=== PATIENT | female | born 1935 | race Caucasian/White ===

== ENCOUNTER 2016-12-30 16:16 | Emergency (ER) | payer MEDICARE ==
[~2016-12-30] VITALS: Ht 167.6 cm; Wt 77.3 kg
[~2016-12-30 16:16] MED LIST: ALPH200T2 PO; ASPI-496 PO; ATEN100T PO; CLOP75TA22 PO; DIAZ2TAB3 PO; EZET1TAB5 PO; LEVO112T4 PO; LEVO250C PO; LOSA25TA5 PO; MECL-76 PO; METF500T3 PO; METH500T97 PO; MONT10TA6 PO; POTA20TA6 PO; RANI150T4 PO; RANO500T2 PO; SOLI10TA PO; TRIA1CAP3 PO; UBID400C6 PO
[2016-12-30 17:12] VITALS: BP 133/53
== END 2016-12-30 18:54 | disposition home or self-care (01) ==
LOC: ED 18:16
DX: S33.5XXA Sprain of ligaments of lumbar spine, initial encounter (principal); S70.01XA Contusion of right hip, initial encounter; I10 Essential (primary) hypertension; E11.9 Type 2 diabetes mellitus without complications; J45.909 Unspecified asthma, uncomplicated; I25.2 Old myocardial infarction; W18.30XA Fall on same level, unspecified, initial encounter; Y93.89 Activity, other specified; Y99.8 Other external cause status; Y92.003 Bedroom of unspecified non-institutional (private) residence as the place of occurrence of the external cause
CPT/HCPCS: 72110; 72170; 93005

== ENCOUNTER 2018-03-14 13:47 | Emergency (ER) | payer MEDICARE ==
[~2018-03-14] VITALS: Ht 167.6 cm; Wt 72.0 kg
[~2018-03-14 13:47] MED LIST changes: -CLOP75TA22 PO; +CLOP75TA52 PO; +EZET1TAB35 PO; -EZET1TAB5 PO; -SOLI10TA PO; +SOLI10TA2 PO
[2018-03-14] MEDS ORDERED: OXYcodone/APAP 5/325MG TABLET ONE (14:13)
[2018-03-14] MEDS ORDERED: OXYcodone/APAP 5/325MG TABLET PO ONE (14:30)
[2018-03-14] MEDS ORDERED: BACITRACIN ZINC OINT 500U/GM, 0.9 GM ONE (14:58)
[2018-03-14 16:59] VITALS: BP 122/62
== END 2018-03-14 17:01 | disposition home or self-care (01) ==
LOC: ED 14:29
DX: S42.031A Displaced fracture of lateral end of right clavicle, initial encounter for closed fracture (principal); I10 Essential (primary) hypertension; I25.10 Atherosclerotic heart disease of native coronary artery without angina pectoris; I25.2 Old myocardial infarction; E11.9 Type 2 diabetes mellitus without complications; Z87.891 Personal history of nicotine dependence; V98.8XXA Other specified transport accidents, initial encounter; Y93.55 Activity, bike riding; Y92.89 Other specified places as the place of occurrence of the external cause; Y99.8 Other external cause status
CPT/HCPCS: 99284

== ENCOUNTER 2018-03-19 10:08 | Inpatient (IN) | payer MEDICARE ==
[~2018-03-19] VITALS: Ht 167.6 cm; Wt 73.8 kg
[2018-03-19 11:14] LABS: INTERNATIONAL NORMALIZED RATIO 1.05 (0.93-1.1); PROTHROMBIN TIME 10.8 Seconds (9.6-11.5)
[2018-03-19 11:20] LABS: ALANINE AMINOTRANSFERASE 16 U/L (12-78); ALBUMIN 3.5 g/dL (3.4-5.0); ANION GAP 8 mmol/L (5-15); CALCIUM 8.7 mg/dL (8.5-10.1); CHLORIDE 105 mmol/L (98-107)
[2018-03-19 11:21] LABS: TROPONIN I < 0.015 ng/mL (0.000-0.045)
[2018-03-19 11:23] LABS: ALKALINE PHOSPHATASE 72 U/L (45-117); BILIRUBIN,TOTAL 0.6 mg/dL (0.2-1.0); CREATINE KINASE, TOTAL 85 U/L (26-192); CREATININE 1.47 mg/dL (0.55-1.02); TOTAL PROTEIN 6.4 g/dL (6.4-8.2)
[2018-03-19 11:25] LABS: BASOPHILS # (AUTO) 0.02 x10^3/uL (0-0.1); BASOPHILS % (AUTO) 0 % (0-1); EOSINOPHILS # (AUTO) 0.03 x10^3/uL (0-0.4); EOSINOPHILS % (AUTO) 0 % (1-7); LYMPHOCYTES # (AUTO) 0.95 x10^3/uL (1-3.4); LYMPHOCYTES % (AUTO) 16 % (22-44); MD NO; MEAN CORPUSCULAR HGB CONC 33.3 g/dL (32.4-35.8); MEAN CORPUSCULAR VOLUME 96.1 fL (80-100); MEAN PLATELET VOLUME 7.7 fL (7.4-10.4); MONOCYTES # (AUTO) 0.26 x10^3/uL (0.2-0.8); MONOCYTES % (AUTO) 4 % (2-9); NEUTROPHILS # (AUTO) 4.87 x10^3/uL (1.8-6.8); NEUTROPHILS % (AUTO) 80 % (42-75); PLATELET COUNT 227 x10^3/uL (130-400); RED BLOOD COUNT 4.05 x10^6/uL (3.82-5.3)
[2018-03-19 12:22] LABS: MICROSCOPIC INDICATED
[2018-03-19 12:23] LABS: CULTURE INDICATED? YES
[2018-03-19] MEDS ORDERED: SODIUM CHLORIDE 0.9% 1,000 ML IV ONE (13:30)
[2018-03-19 14:27] VITALS: BP 161/66
[2018-03-19] MEDS ORDERED: ONDANSETRON 2MG/ML, 2ML IVPush PRN (15:00)
[2018-03-19] MEDS ORDERED: LABETALOL 5MG/ML, 20ML IVPush PRN (15:00)
[2018-03-19] MEDS ORDERED: ACETAMINOPHEN 325 MG TABLET PO PRN (15:00)
[2018-03-19 16:04] LABS: HEMOGLOBIN A1C 5.1 % (4.2-6.3)
[2018-03-19 16:11] VITALS: BP 161/66
[2018-03-19] MEDS: POTASSIUM CHLORIDE 20 MEQ in LACTATED RINGERS 1,000 ML IV SCH (16:43)
[2018-03-19] MEDS: HEPARIN 5,000 UNITS/ML, 1ML SQ SCH (16:45)
[2018-03-19 20:37] VITALS: BP 147/66
[2018-03-19] MEDS: RANOLAZINE 500 MG TAB.ER.12H PO SCH (21:19)
[2018-03-19] MEDS: SIMVASTATIN 40 MG TABLET PO SCH (21:20)
[2018-03-19] MEDS: OXYBUTYNIN CHLORIDE 5 MG TABLET PO SCH (21:21)
[2018-03-20 00:24] VITALS: BP 155/73
[2018-03-20] MEDS: POTASSIUM CHLORIDE 20 MEQ in LACTATED RINGERS 1,000 ML IV SCH ×2 (04:42→16:46)
[2018-03-20 05:01] LABS: BASOPHILS # (AUTO) 0.06 x10^3/uL (0-0.1); BASOPHILS % (AUTO) 1 % (0-1); EOSINOPHILS # (AUTO) 0.09 x10^3/uL (0-0.4); EOSINOPHILS % (AUTO) 2 % (1-7); LYMPHOCYTES # (AUTO) 1.74 x10^3/uL (1-3.4); LYMPHOCYTES % (AUTO) 34 % (22-44); MD NO; MEAN CORPUSCULAR HEMOGLOBIN 31.9 pg (27.0-34.8); MEAN CORPUSCULAR HGB CONC 33.4 g/dL (32.4-35.8); MEAN CORPUSCULAR VOLUME 95.4 fL (80-100); MEAN PLATELET VOLUME 7.6 fL (7.4-10.4); MONOCYTES # (AUTO) 0.42 x10^3/uL (0.2-0.8); MONOCYTES % (AUTO) 8 % (2-9); NEUTROPHILS # (AUTO) 2.85 x10^3/uL (1.8-6.8); NEUTROPHILS % (AUTO) 55 % (42-75); PLATELET COUNT 233 x10^3/uL (130-400); RED BLOOD COUNT 3.99 x10^6/uL (3.82-5.3); RED CELL DISTRIBUTION WIDTH 13.9 % (9.6-15.2)
[2018-03-20 05:12] LABS: ANION GAP 7 mmol/L (5-15); CALCIUM 8.8 mg/dL (8.5-10.1); CHLORIDE 108 mmol/L (98-107)
[2018-03-20 05:13] LABS: CREATININE 1.08 mg/dL (0.55-1.02)
[2018-03-20] MEDS: LEVOTHYROXINE 112 MCG TABLET PO SCH (05:15)
[2018-03-20] MEDS: OXYBUTYNIN CHLORIDE 5 MG TABLET PO SCH ×3 (05:15→21:55)
[2018-03-20] MEDS: HEPARIN 5,000 UNITS/ML, 1ML SQ SCH ×3 (05:15→21:55)
[2018-03-20 07:05] VITALS: BP 156/69
[2018-03-20] MEDS: EZETIMIBE 10 MG TABLET PO SCH (08:51)
[2018-03-20] MEDS: POTASSIUM CHLORIDE 20 MEQ TAB.ER.PRT PO SCH (08:51)
[2018-03-20] MEDS: RANOLAZINE 500 MG TAB.ER.12H PO SCH ×2 (08:51→21:55)
[2018-03-20] MEDS: ASPIRIN 81 MG TABLET EC PO SCH (08:52)
[2018-03-20] MEDS: LOSARTAN 25MG TABLET PO SCH (08:53)
[2018-03-20] MEDS: LEVOCARNITINE 100 MG/ML PO SCH (09:00)
[2018-03-20] MEDS ORDERED: TEMPLATE NON-FORMULARY MED. (Alpha Lipoic Acid** 200 MG) PO SCH (09:00)
[2018-03-20] MEDS ORDERED: UBIDECARENONE 400 MG PO SCH (09:00)
[2018-03-20 12:36] VITALS: BP 146/71
[2018-03-20 19:05] VITALS: BP 152/69
[2018-03-20] MEDS: SIMVASTATIN 40 MG TABLET PO SCH (21:55)
[2018-03-21 01:30] VITALS: BP 168/71
[2018-03-21] MEDS: POTASSIUM CHLORIDE 20 MEQ in LACTATED RINGERS 1,000 ML IV SCH ×2 (02:28→20:42)
[2018-03-21] MEDS: OXYBUTYNIN CHLORIDE 5 MG TABLET PO SCH ×3 (06:24→20:45)
[2018-03-21] MEDS: LEVOTHYROXINE 112 MCG TABLET PO SCH (06:24)
[2018-03-21] MEDS: HEPARIN 5,000 UNITS/ML, 1ML SQ SCH ×3 (06:25→22:00)
[2018-03-21 07:34] VITALS: BP 146/78
[2018-03-21] MEDS: RANOLAZINE 500 MG TAB.ER.12H PO SCH ×2 (07:52→20:41)
[2018-03-21] MEDS: EZETIMIBE 10 MG TABLET PO SCH (07:53)
[2018-03-21] MEDS: ASPIRIN 81 MG TABLET EC PO SCH (07:53)
[2018-03-21] MEDS: LOSARTAN 25MG TABLET PO SCH (07:54)
[2018-03-21] MEDS: LEVOCARNITINE 100 MG/ML PO SCH (07:54)
[2018-03-21] MEDS: POTASSIUM CHLORIDE 20 MEQ TAB.ER.PRT PO SCH (09:00)
[2018-03-21 13:08] VITALS: BP 110/74
[2018-03-21 19:11] VITALS: BP 163/74
[2018-03-21] MEDS: SIMVASTATIN 40 MG TABLET PO SCH (20:42)
[2018-03-22 00:20] VITALS: BP 166/67
[2018-03-22] MEDS: HEPARIN 5,000 UNITS/ML, 1ML SQ SCH (05:39)
[2018-03-22] MEDS: OXYBUTYNIN CHLORIDE 5 MG TABLET PO SCH (05:39)
[2018-03-22] MEDS: LEVOTHYROXINE 112 MCG TABLET PO SCH (05:46)
[2018-03-22 07:09] VITALS: BP 164/78
[2018-03-22] MEDS: RANOLAZINE 500 MG TAB.ER.12H PO SCH (08:28)
[2018-03-22] MEDS: POTASSIUM CHLORIDE 20 MEQ TAB.ER.PRT PO SCH (08:28)
[2018-03-22] MEDS: EZETIMIBE 10 MG TABLET PO SCH (08:29)
[2018-03-22] MEDS: LOSARTAN 25MG TABLET PO SCH (08:29)
[2018-03-22] MEDS: ASPIRIN 81 MG TABLET EC PO SCH (08:29)
[2018-03-22] MEDS: LEVOCARNITINE 100 MG/ML PO SCH (08:30)
[2018-03-22] MEDS: POTASSIUM CHLORIDE 20 MEQ in LACTATED RINGERS 1,000 ML IV SCH (08:46)
== END 2018-03-22 12:52 | DRG 542 ==
LOC: ED 11:37 → EDIP 13:23 → 3NE 14:09
PROVIDERS: ADMIT Internal Medicine; ATTEND Internal Medicine
PROC: 0T9B70Z Drainage of Bladder with Drainage Device, Via Natural or Artificial Opening (ICD-10-PCS; principal; 2018-03-19)
DX: M80.011A Age-related osteoporosis with current pathological fracture, right shoulder, initial encounter for fracture (principal); N17.0 Acute kidney failure with tubular necrosis; I25.10 Atherosclerotic heart disease of native coronary artery without angina pectoris; M19.90 Unspecified osteoarthritis, unspecified site; E03.9 Hypothyroidism, unspecified; E11.9 Type 2 diabetes mellitus without complications; I11.9 Hypertensive heart disease without heart failure; Z88.3 Allergy status to other anti-infective agents; W18.30XA Fall on same level, unspecified, initial encounter; Y93.89 Activity, other specified; Y92.89 Other specified places as the place of occurrence of the external cause; Y99.8 Other external cause status; Z95.5 Presence of coronary angioplasty implant and graft; Z87.891 Personal history of nicotine dependence; Z82.49 Family history of ischemic heart disease and other diseases of the circulatory system
CPT/HCPCS: 36415; 51701; 71045; 80048; 80053; 81001; 82550; 83036; 83605; 83735; 84100; 84443; 84484; 85025; 85610; 87086; 93005; 99285; J1644; J3480; J7030; J7120; P9612

== ENCOUNTER 2018-04-20 04:40 | Emergency (ER) | payer MEDICARE ==
[~2018-04-20] VITALS: Ht 167.6 cm; Wt 71.4 kg
[~2018-04-20 04:40] MED LIST changes: -LOSA25TA5 PO; +LOSA25TA6 PO
[2018-04-20 05:35] LABS: BASOPHILS # (AUTO) 0.03 x10^3/uL (0-0.1); BASOPHILS % (AUTO) 0 % (0-1); EOSINOPHILS # (AUTO) 0.03 x10^3/uL (0-0.4); EOSINOPHILS % (AUTO) 0 % (1-7); LYMPHOCYTES # (AUTO) 0.91 x10^3/uL (1-3.4); LYMPHOCYTES % (AUTO) 12 % (22-44); MD NO; MEAN CORPUSCULAR HEMOGLOBIN 32.4 pg (27.0-34.8); MEAN CORPUSCULAR HGB CONC 33.8 g/dL (32.4-35.8); MEAN CORPUSCULAR VOLUME 95.8 fL (80-100); MEAN PLATELET VOLUME 7.2 fL (7.4-10.4); MONOCYTES # (AUTO) 0.34 x10^3/uL (0.2-0.8); MONOCYTES % (AUTO) 5 % (2-9); NEUTROPHILS # (AUTO) 6.33 x10^3/uL (1.8-6.8); NEUTROPHILS % (AUTO) 83 % (42-75); PLATELET COUNT 254 x10^3/uL (130-400); RED BLOOD COUNT 3.87 x10^6/uL (3.82-5.3); RED CELL DISTRIBUTION WIDTH 13.5 % (9.6-15.2)
[2018-04-20 05:48] LABS: ALBUMIN 3.2 g/dL (3.4-5.0); ANION GAP 8 mmol/L (5-15); CALCIUM 8.8 mg/dL (8.5-10.1); CHLORIDE 107 mmol/L (98-107); CREATININE 0.98 mg/dL (0.55-1.02)
[2018-04-20 05:51] LABS: CREATINE KINASE, TOTAL 41 U/L (26-192)
[2018-04-20] MEDS ORDERED: ACETAMINOPHEN 500 MG TABLET ONE (05:53)
[2018-04-20] MEDS ORDERED: ACETAMINOPHEN 325 MG TABLET PO ONE (06:00)
[2018-04-20 07:15] VITALS: BP 136/53
== END 2018-04-20 07:18 | disposition home or self-care (01) ==
LOC: ED 05:01
DX: S42.031A Displaced fracture of lateral end of right clavicle, initial encounter for closed fracture (principal); W01.0XXA Fall on same level from slipping, tripping and stumbling without subsequent striking against object, initial encounter; Y93.89 Activity, other specified; Y92.098 Other place in other non-institutional residence as the place of occurrence of the external cause; Y99.8 Other external cause status
CPT/HCPCS: 36415; 70450; 80048; 82040; 82550; 85025; 93005; 99285

== ENCOUNTER 2018-05-29 16:43 | Observation (INO) | payer MEDICARE ==
[~2018-05-29] VITALS: Ht 167.6 cm; Wt 72.2 kg
[2018-05-29] MEDS ORDERED: MORPHINE SULFATE 4 MG/ML, 1ML IVPush ONE (17:00)
[2018-05-29] MEDS ORDERED: MORPHINE SULFATE 4 MG/ML, 1ML ONE (18:08)
[2018-05-29] MEDS ORDERED: SODIUM CHLORIDE FLUSH 10ML SYR IVF ONE (19:30)
[2018-05-29 20:07] LABS: BASOPHILS # (AUTO) 0.03 x10^3/uL (0-0.1); BASOPHILS % (AUTO) 1 % (0-1); EOSINOPHILS # (AUTO) 0.12 x10^3/uL (0-0.4); EOSINOPHILS % (AUTO) 2 % (1-7); LYMPHOCYTES # (AUTO) 1.46 x10^3/uL (1-3.4); LYMPHOCYTES % (AUTO) 21 % (22-44); MD NO; MEAN CORPUSCULAR HEMOGLOBIN 32.3 pg (27.0-34.8); MEAN CORPUSCULAR HGB CONC 33.6 g/dL (32.4-35.8); MEAN PLATELET VOLUME 7.5 fL (7.4-10.4); MONOCYTES # (AUTO) 0.41 x10^3/uL (0.2-0.8); MONOCYTES % (AUTO) 6 % (2-9); NEUTROPHILS # (AUTO) 4.83 x10^3/uL (1.8-6.8); NEUTROPHILS % (AUTO) 70 % (42-75); PLATELET COUNT 203 x10^3/uL (130-400); RED BLOOD COUNT 3.16 x10^6/uL (3.82-5.3); RED CELL DISTRIBUTION WIDTH 14.4 % (9.6-15.2)
[2018-05-29 20:15] LABS: INTERNATIONAL NORMALIZED RATIO 1.08 (0.93-1.1); PROTHROMBIN TIME 11.1 Seconds (9.6-11.5)
[2018-05-29 20:16] LABS: ALANINE AMINOTRANSFERASE 18 U/L (12-78); ALBUMIN 2.8 g/dL (3.4-5.0); ANION GAP 10 mmol/L (5-15); CHLORIDE 107 mmol/L (98-107)
[2018-05-29 20:19] LABS: ALKALINE PHOSPHATASE 64 U/L (45-117); BILIRUBIN,TOTAL 0.4 mg/dL (0.2-1.0); TOTAL PROTEIN 5.1 g/dL (6.4-8.2)
[2018-05-29] MEDS ORDERED: SODIUM CHLORIDE FLUSH 10ML SYR IVF PRN (20:30)
[2018-05-29] MEDS ORDERED: ONDANSETRON 2MG/ML, 2ML IVPush PRN (21:00)
[2018-05-29] MEDS ORDERED: ACETAMINOPHEN 325 MG TABLET PO PRN (21:00)
[2018-05-29] MEDS ORDERED: POLYETHYLENE GLYCOL 17 GM PACKET PO PRN (21:00)
[2018-05-29] MEDS ORDERED: DEXTROSE 50%, 50ML SYRINGE IVPush PRN (21:30)
[2018-05-29] MEDS ORDERED: DEXTROSE 4 GM TAB.CHEW PO PRN (21:30)
[2018-05-29] MEDS ORDERED: GLUCAGON 1 MG IM PRN (21:30)
[2018-05-29] MEDS: SODIUM CHLORIDE 0.9% 1,000 ML IV SCH (21:33)
[2018-05-29 21:42] VITALS: BP 104/51
[2018-05-30] MEDS: OXYBUTYNIN CHLORIDE 5 MG TABLET PO SCH ×3 (00:17→16:00)
[2018-05-30 00:20] LABS: MICROSCOPIC AUTO
[2018-05-30 00:28] LABS: CULTURE INDICATED? YES
[2018-05-30 02:14] VITALS: BP 102/54
[2018-05-30] MEDS ORDERED: ASPIRIN 81 MG TABLET EC PO SCH (06:00)
[2018-05-30] MEDS ORDERED: LEVOTHYROXINE 112 MCG TABLET PO SCH (06:00)
[2018-05-30] MEDS ORDERED: CEFTRIAXONE PMX 1GM/50ML 50 ML IV SCH (07:30)
[2018-05-30 07:59] VITALS: BP 100/58
[2018-05-30 08:09] LABS: ANION GAP 8 mmol/L (5-15); BASOPHILS # (AUTO) 0.03 x10^3/uL (0-0.1); BASOPHILS % (AUTO) 1 % (0-1); CALCIUM 8.2 mg/dL (8.5-10.1); CHLORIDE 105 mmol/L (98-107); CREATININE 0.87 mg/dL (0.55-1.02); EOSINOPHILS # (AUTO) 0.05 x10^3/uL (0-0.4); EOSINOPHILS % (AUTO) 1 % (1-7); LYMPHOCYTES # (AUTO) 1.71 x10^3/uL (1-3.4); LYMPHOCYTES % (AUTO) 27 % (22-44); MD NO; MEAN CORPUSCULAR HEMOGLOBIN 31.7 pg (27.0-34.8); MEAN CORPUSCULAR HGB CONC 32.7 g/dL (32.4-35.8); MEAN CORPUSCULAR VOLUME 96.8 fL (80-100); MEAN PLATELET VOLUME 7.3 fL (7.4-10.4); MONOCYTES % (AUTO) 8 % (2-9); NEUTROPHILS # (AUTO) 3.95 x10^3/uL (1.8-6.8); NEUTROPHILS % (AUTO) 63 % (42-75); PLATELET COUNT 212 x10^3/uL (130-400); RED BLOOD COUNT 2.83 x10^6/uL (3.82-5.3); RED CELL DISTRIBUTION WIDTH 14.1 % (9.6-15.2)
[2018-05-30] MEDS ORDERED: EZETIMIBE 10 MG TABLET PO SCH (09:00)
[2018-05-30] MEDS ORDERED: UBIDECARENONE 400 MG PO SCH (09:00)
[2018-05-30] MEDS ORDERED: SODIUM CHLORIDE FLUSH 10ML SYR IVF SCH (09:00)
[2018-05-30] MEDS ORDERED: POTASSIUM CHLORIDE 20 MEQ TAB.ER.PRT PO SCH (09:00)
[2018-05-30] MEDS ORDERED: SIMVASTATIN 40 MG TABLET PO SCH (09:00)
[2018-05-30] MEDS ORDERED: LOSARTAN 25MG TABLET PO SCH (09:00)
[2018-05-30] MEDS ORDERED: CALCIUM CITRATE 950 MG TABLET PO SCH (09:30)
[2018-05-30] MEDS ORDERED: MAGNESIUM SULFATE PMX 2GM/50ML 50 ML IV ONE (09:30)
[2018-05-30 13:30] VITALS: BP 95/53
[2018-05-30] MEDS: SODIUM CHLORIDE 0.9% 1,000 ML IV SCH (13:34)
[2018-05-30] MEDS ORDERED: CEFD300C37 PO (13:58)
== END 2018-05-30 17:53 | disposition home or self-care (01) ==
LOC: ED 16:49 → EDIP 20:25 → INTOOBSV 20:25 → 3NW 21:21
PROVIDERS: ADMIT Hospitalist; ATTEND Hospitalist
DX: S70.02XA Contusion of left hip, initial encounter (principal); R79.89 Other specified abnormal findings of blood chemistry; E43 Unspecified severe protein-calorie malnutrition; I10 Essential (primary) hypertension; D64.9 Anemia, unspecified; E11.9 Type 2 diabetes mellitus without complications; E03.9 Hypothyroidism, unspecified; E78.5 Hyperlipidemia, unspecified; E83.51 Hypocalcemia; E83.42 Hypomagnesemia; I25.10 Atherosclerotic heart disease of native coronary artery without angina pectoris; M16.12 Unilateral primary osteoarthritis, left hip; M19.019 Primary osteoarthritis, unspecified shoulder; N39.0 Urinary tract infection, site not specified; R29.6 Repeated falls; Z90.710 Acquired absence of both cervix and uterus; Z96.651 Presence of right artificial knee joint; W18.09XA Striking against other object with subsequent fall, initial encounter; Y93.89 Activity, other specified; Z91.81 History of falling; Y92.512 Supermarket, store or market as the place of occurrence of the external cause
CPT/HCPCS: 36415; 73030; 73502; 73700; 80048; 80053; 81001; 82962; 83735; 84100; 85025; 85610; 85730; 87086; 93005; 96365; 96366; 96367; 96375; 97163; 97165; 99285; G0378; J0696; J3475; J7030; 96374

== ENCOUNTER 2018-06-14 10:36 | Emergency (ER) | payer MEDICARE ==
[~2018-06-14] VITALS: Ht 167.6 cm; Wt 72.7 kg
[~2018-06-14 10:36] MED LIST changes: +CEFD300C37 PO
[2018-06-14 11:17] LABS: BASOPHILS # (AUTO) 0.01 x10^3/uL (0-0.1); BASOPHILS % (AUTO) 0 % (0-1); EOSINOPHILS # (AUTO) 0.03 x10^3/uL (0-0.4); EOSINOPHILS % (AUTO) 1 % (1-7); LYMPHOCYTES # (AUTO) 0.69 x10^3/uL (1-3.4); LYMPHOCYTES % (AUTO) 13 % (22-44); MD NO; MEAN CORPUSCULAR HEMOGLOBIN 33.1 pg (27.0-34.8); MEAN CORPUSCULAR HGB CONC 33.4 g/dL (32.4-35.8); MEAN CORPUSCULAR VOLUME 99.1 fL (80-100); MEAN PLATELET VOLUME 6.6 fL (7.4-10.4); MONOCYTES # (AUTO) 0.21 x10^3/uL (0.2-0.8); MONOCYTES % (AUTO) 4 % (2-9); NEUTROPHILS # (AUTO) 4.46 x10^3/uL (1.8-6.8); NEUTROPHILS % (AUTO) 83 % (42-75); PLATELET COUNT 389 x10^3/uL (130-400); RED BLOOD COUNT 3.35 x10^6/uL (3.82-5.3)
[2018-06-14 11:27] LABS: ALBUMIN 3.7 g/dL (3.4-5.0); ANION GAP 7 mmol/L (5-15); CALCIUM 8.7 mg/dL (8.5-10.1); CHLORIDE 106 mmol/L (98-107); CREATININE 0.87 mg/dL (0.55-1.02)
[2018-06-14 12:12] VITALS: BP 153/67
== END 2018-06-14 12:33 | disposition home or self-care (01) ==
LOC: ED 10:48
DX: R42 Dizziness and giddiness (principal); I10 Essential (primary) hypertension; E11.9 Type 2 diabetes mellitus without complications; I25.10 Atherosclerotic heart disease of native coronary artery without angina pectoris; W06.XXXA Fall from bed, initial encounter; Y93.89 Activity, other specified; Y92.89 Other specified places as the place of occurrence of the external cause; Y99.8 Other external cause status; F03.90 Unspecified dementia, unspecified severity, without behavioral disturbance, psychotic disturbance, mood disturbance, and anxiety
CPT/HCPCS: 36415; 80048; 82040; 85025; 93005; 99285

== ENCOUNTER 2018-12-12 13:08 | Emergency (ER) | payer MEDICARE ==
[~2018-12-12] VITALS: Ht 167.6 cm; Wt 67.0 kg
[~2018-12-12 13:08] MED LIST changes: +LOSA25TA25 PO; -LOSA25TA6 PO
--- NOTE | 2018-12-12 13:41 | NUR ---
PT TO CT VIA [facility].
[2018-12-12] MEDS ORDERED: CLOP75TA52 PO (13:49)
--- NOTE | 2018-12-12 13:51 | NUR ---
REPORT TO RAYMON HIRSCH
--- NOTE | 2018-12-12 15:20 | NUR ---
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
[2018-12-12 15:58] VITALS: BP 143/78
== END 2018-12-12 16:00 | disposition home or self-care (01) ==
LOC: ED 14:30
DX: S70.01XA Contusion of right hip, initial encounter (principal); S00.03XA Contusion of scalp, initial encounter; S60.512A Abrasion of left hand, initial encounter; S60.511A Abrasion of right hand, initial encounter; W18.30XA Fall on same level, unspecified, initial encounter; Y93.89 Activity, other specified; Y92.009 Unspecified place in unspecified non-institutional (private) residence as the place of occurrence of the external cause; Y99.8 Other external cause status
CPT/HCPCS: 70450; 99284

== ENCOUNTER 2019-09-09 12:57 | Inpatient (IN) | payer MEDICARE ==
[~2019-09-09] VITALS: Ht 167.6 cm; Wt 75.1 kg
--- NOTE | 2019-09-09 13:12 | NUR ---
Break RN: MD Munoz at bedside to assess pt
[2019-09-09] MEDS ORDERED: SODIUM CHLORIDE FLUSH 10ML SYR IVF ONE (13:30)
[2019-09-09 13:46] LABS: BASOPHILS # (AUTO) 0.03 x10^3/uL (0-0.1); BASOPHILS % (AUTO) 1 % (0-1); EOSINOPHILS # (AUTO) 0.12 x10^3/uL (0-0.4); EOSINOPHILS % (AUTO) 3 % (1-7); LYMPHOCYTES % (AUTO) 22 % (22-44); MD NO; MEAN CORPUSCULAR HEMOGLOBIN 30.1 pg (27.0-34.8); MEAN CORPUSCULAR HGB CONC 32.9 g/dL (32.4-35.8); MEAN CORPUSCULAR VOLUME 91.4 fL (80-100); MEAN PLATELET VOLUME 7.3 fL (7.4-10.4); MONOCYTES # (AUTO) 0.36 x10^3/uL (0.2-0.8); MONOCYTES % (AUTO) 8 % (2-9); NEUTROPHILS # (AUTO) 3.14 x10^3/uL (1.8-6.8); NEUTROPHILS % (AUTO) 68 % (42-75); PLATELET COUNT 240 x10^3/uL (130-400); RED BLOOD COUNT 3.85 x10^6/uL (3.82-5.3); RED CELL DISTRIBUTION WIDTH 14.2 % (9.6-15.2)
[2019-09-09 13:56] LABS: ALBUMIN 3.2 g/dL (3.4-5.0); ANION GAP 6 mmol/L (5-15); CALCIUM 9.1 mg/dL (8.5-10.1); CHLORIDE 106 mmol/L (98-107); CREATININE 0.98 mg/dL (0.55-1.02)
[2019-09-09 14:00] LABS: TROPONIN I < 0.015 ng/mL (0.000-0.045)
--- NOTE | 2019-09-09 15:58 | NUR ---
MULTI USE OF BS COMMODE W CONTACT ASSIST
--- NOTE | 2019-09-09 16:39 | NUR ---
CALLED REPORT TO THE FLOOR
[2019-09-09] MEDS ORDERED: ACETAMINOPHEN 325 MG TABLET PO PRN (18:00)
[2019-09-09] MEDS ORDERED: hydrALAzine 20 MG/ML, 1ML IVPush PRN (18:00)
[2019-09-09] MEDS ORDERED: ONDANSETRON 2MG/ML, 2ML IVPush PRN (18:00)
[2019-09-09] MEDS ORDERED: MORPHINE SULFATE 4 MG/ML, 1ML IVPush PRN (18:00)
[2019-09-09] MEDS ORDERED: TEMAZEPAM 15 MG CAPSULE PO PRN (18:00)
[2019-09-09] MEDS: INSULIN LISPRO 100 UNITS/ML, PEN SQ-INSULIN SCH ×2 (18:08→21:00)
[2019-09-09 18:44] LABS: MICROSCOPIC NOT IND
[2019-09-09 18:53] LABS: CULTURE INDICATED? NO
[2019-09-09 19:07] LABS: TROPONIN I < 0.015 ng/mL (0.000-0.045)
[2019-09-09] MEDS: ENOXAPARIN 40 MG/0.4 ML SQ SCH (20:58)
[2019-09-09] MEDS: ATORVASTATIN 20 MG TABLET PO SCH (20:58)
[2019-09-09 20:59] VITALS: BP_SYST 182; BP_SYST 185; BP_DIAS 60; BP_DIAS 64
[2019-09-09] MEDS: LISINOPRIL 20 MG TABLET PO SCH (20:59)
[2019-09-10] VITALS (9 sets, daily range): BP systolic 113–155; BP diastolic 55–73
[2019-09-10 03:14] LABS: TROPONIN I < 0.015 ng/mL (0.000-0.045)
[2019-09-10 05:47] LABS: BASOPHILS # (AUTO) 0.03 x10^3/uL (0-0.1); BASOPHILS % (AUTO) 1 % (0-1); EOSINOPHILS # (AUTO) 0.13 x10^3/uL (0-0.4); EOSINOPHILS % (AUTO) 3 % (1-7); LYMPHOCYTES # (AUTO) 1.58 x10^3/uL (1-3.4); LYMPHOCYTES % (AUTO) 37 % (22-44); MD NO; MEAN CORPUSCULAR HEMOGLOBIN 30.2 pg (27.0-34.8); MEAN CORPUSCULAR HGB CONC 33.5 g/dL (32.4-35.8); MEAN CORPUSCULAR VOLUME 90.3 fL (80-100); MEAN PLATELET VOLUME 7.7 fL (7.4-10.4); MONOCYTES # (AUTO) 0.49 x10^3/uL (0.2-0.8); MONOCYTES % (AUTO) 12 % (2-9); NEUTROPHILS # (AUTO) 2.01 x10^3/uL (1.8-6.8); NEUTROPHILS % (AUTO) 47 % (42-75); PLATELET COUNT 231 x10^3/uL (130-400); RED BLOOD COUNT 3.75 x10^6/uL (3.82-5.3); RED CELL DISTRIBUTION WIDTH 14.1 % (9.6-15.2)
[2019-09-10] MEDS: LEVOTHYROXINE 100 MCG TABLET PO SCH (05:49)
[2019-09-10] MEDS: ASPIRIN 81 MG TABLET EC PO SCH (05:49)
[2019-09-10 05:51] LABS: ANION GAP 5 mmol/L (5-15); CALCIUM 9.1 mg/dL (8.5-10.1); CHLORIDE 109 mmol/L (98-107)
[2019-09-10 05:57] LABS: ALANINE AMINOTRANSFERASE 11 U/L (12-78); ALKALINE PHOSPHATASE 84 U/L (45-117); BILIRUBIN,TOTAL 0.4 mg/dL (0.2-1.0); CREATININE 0.96 mg/dL (0.55-1.02); TOTAL PROTEIN 5.6 g/dL (6.4-8.2)
[2019-09-10] MEDS: INSULIN LISPRO 100 UNITS/ML, PEN SQ-INSULIN SCH ×4 (07:00→20:14)
[2019-09-10] MEDS: LISINOPRIL 20 MG TABLET PO SCH ×2 (08:06→20:16)
[2019-09-10] MEDS: ENOXAPARIN 40 MG/0.4 ML SQ SCH (20:14)
[2019-09-10] MEDS: ATORVASTATIN 20 MG TABLET PO SCH (20:15)
[2019-09-10] MEDS: SODIUM CHLORIDE 0.9% 1,000 ML IV SCH (20:29)
[2019-09-10] MEDS ORDERED: NITROGLYCERIN 0.4 MG/SPRAY SL PRN (23:00)
[2019-09-11] VITALS (7 sets, daily range): BP systolic 155–204; BP diastolic 64–93
[2019-09-11] MEDS: ASPIRIN 81 MG TABLET EC PO SCH (05:51)
[2019-09-11] MEDS: LEVOTHYROXINE 100 MCG TABLET PO SCH (05:51)
[2019-09-11] MEDS: INSULIN LISPRO 100 UNITS/ML, PEN SQ-INSULIN SCH ×4 (08:09→21:00)
[2019-09-11] MEDS: SODIUM CHLORIDE 0.9% 1,000 ML IV SCH (10:28)
[2019-09-11] MEDS: LISINOPRIL 20 MG TABLET PO SCH ×2 (10:29→21:59)
[2019-09-11] MEDS: ENOXAPARIN 40 MG/0.4 ML SQ SCH (21:59)
[2019-09-11] MEDS: ATORVASTATIN 20 MG TABLET PO SCH (21:59)
[2019-09-12 02:00] VITALS: BP 145/82
[2019-09-12] MEDS: LEVOTHYROXINE 100 MCG TABLET PO SCH (05:57)
[2019-09-12] MEDS: ASPIRIN 81 MG TABLET EC PO SCH (05:57)
[2019-09-12] MEDS: INSULIN LISPRO 100 UNITS/ML, PEN SQ-INSULIN SCH ×2 (07:00→11:38)
[2019-09-12] MEDS: LISINOPRIL 20 MG TABLET PO SCH (08:15)
[2019-09-12 08:20] VITALS: BP 176/77
[2019-09-12 10:24] VITALS: BP 138/61
[2019-09-12] MEDS ORDERED: LOSA50TA2 PO (10:45)
== END 2019-09-12 12:00 | disposition home or self-care (01) | DRG 309 ==
LOC: ED 14:55 → EDIP 14:56 → ED 15:05 → 5SO 16:41 → DCLOUNGE 09-12 11:42
PROVIDERS: ADMIT Internal Medicine; ATTEND Internal Medicine
DX: I44.1 Atrioventricular block, second degree (principal); I50.32 Chronic diastolic (congestive) heart failure; I25.10 Atherosclerotic heart disease of native coronary artery without angina pectoris; E03.9 Hypothyroidism, unspecified; E11.42 Type 2 diabetes mellitus with diabetic polyneuropathy; R00.1 Bradycardia, unspecified; E11.51 Type 2 diabetes mellitus with diabetic peripheral angiopathy without gangrene; E78.5 Hyperlipidemia, unspecified; I11.0 Hypertensive heart disease with heart failure; I95.1 Orthostatic hypotension; M19.90 Unspecified osteoarthritis, unspecified site; Z96.651 Presence of right artificial knee joint; Z66 Do not resuscitate; Z79.82 Long term (current) use of aspirin; Z79.84 Long term (current) use of oral hypoglycemic drugs; Z79.899 Other long term (current) drug therapy; Z87.891 Personal history of nicotine dependence; Z90.49 Acquired absence of other specified parts of digestive tract; Z90.710 Acquired absence of both cervix and uterus; Z91.81 History of falling; Z95.5 Presence of coronary angioplasty implant and graft
CPT/HCPCS: 36415; 71045; 80048; 80053; 81003; 82040; 82962; 83735; 84100; 84439; 84443; 84484; 85025; 93005; 93308; 93320; 93321; 93880; 99285; G0378; J1650; J0360; J7030

== ENCOUNTER 2021-01-06 10:38 | Outpatient (CLI) | payer MEDICARE ==
[~2021-01-06 10:38] MED LIST changes: +LOSA50TA2 PO
== END 2021-01-06 23:59 | disposition home or self-care (01) ==
LOC: CFH 10:38
PROVIDERS: ATTEND Internal Medicine Cardiovascular Disease
DX: I08.3 Combined rheumatic disorders of mitral, aortic and tricuspid valves (principal); I25.10 Atherosclerotic heart disease of native coronary artery without angina pectoris; I25.2 Old myocardial infarction; E11.9 Type 2 diabetes mellitus without complications
CPT/HCPCS: 93306